=== PATIENT | female | born 1965 | race Two or more races ===

== ENCOUNTER 2018-12-24 14:26 | Outpatient (CLI) | payer OTHER | END 2018-12-24 14:44 | disposition home or self-care (01) | LOC: NUCLEAR 14:26 | DX: M81.0 Age-related osteoporosis without current pathological fracture (principal) ==

== ENCOUNTER 2019-03-23 10:35 | Outpatient (CLI) | payer OTHER | END 2019-03-23 10:44 | disposition home or self-care (01) | LOC: RAD 10:35 | DX: D01.3 Carcinoma in situ of anus and anal canal (principal); K62.89 Other specified diseases of anus and rectum ==

== ENCOUNTER → 2019-03-23 11:31 | Outpatient (CLI) | payer OTHER ==
[~2019-03-23 11:31] MED LIST: COLACE100 MG PO; PERCOCET 5-3251 EACH PO
== END | disposition home or self-care (01) ==
LOC: EKG 11:31 → LAB 11:31
DX: I10 Essential (primary) hypertension (principal)

== ENCOUNTER 2019-03-25 06:11 | Day surgery (SDC) | payer OTHER ==
[2019-03-25] MEDS ORDERED: PERCOCET 5-3251 EACH PO (09:32)
[2019-03-25] MEDS ORDERED: COLACE100 MG PO (09:32)
== END 2019-03-25 12:45 | disposition home or self-care (01) ==
LOC: CIR.AMB 06:11
DX: A51.31 Condyloma latum (principal); A63.0 Anogenital (venereal) warts

== ENCOUNTER 2019-04-04 19:04 | Emergency (ER) | payer OTHER ==
[~2019-04-04] VITALS: Ht 185.4 cm; Wt 86.2 kg
== END 2019-04-04 22:20 | disposition home or self-care (01) ==
LOC: ER 19:04
DX: K62.5 Hemorrhage of anus and rectum (principal)

== ENCOUNTER 2023-06-19 08:12 | Outpatient (CLI) | payer OTHER | END 2023-06-19 08:17 | disposition home or self-care (01) | LOC: NUCLEAR 08:12 | PROVIDERS: ATTEND Internal Medicine Cardiovascular Disease | DX: R00.2 Palpitations (principal); R07.9 Chest pain, unspecified ==

== ENCOUNTER 2025-03-29 11:19 | Outpatient (CLI) | payer OTHER | END 2025-03-29 11:29 | disposition home or self-care (01) | LOC: MRI 11:19 | PROVIDERS: ATTEND General Practice | DX: M54.50 Low back pain, unspecified (principal) | CPT/HCPCS: 72148 ==